=== PATIENT | male | born 1940 | race Caucasian/White ===

== ENCOUNTER 2021-12-21 14:03 | Emergency (ER) | payer MEDICARE, OTHER ==
[~2021-12-21 14:03] MED LIST: AUGMENTIN 875-1 EACH PO; CARAFATE1 GM PO; COLESTID1 GM PO; DOXYCYCLINE HY100 MG PO; IMDUR 30MG TABL30 MG PO; LEVOTHYROXINE175 MCG PO; LIPITOR20 MG PO; MECLIZINE25 MG PO; MOBIC7.5 MG PO; NEURONTIN600 MG PO; NORCO 5-325 TA1 EACH PO; OXYCODONE HCL5 MG PO; PAXIL20 MG PO; PRILOSEC20 MG PO; TOPROL XL25 MG PO; TYLENOL500 MG PO; ZANTAC150 MG PO; ZOFRAN4 MG PO
== END 2021-12-21 17:36 | disposition home or self-care (01) ==
LOC: FER 14:03
DX: M25.531 Pain in right wrist (principal); I10 Essential (primary) hypertension; X58.XXXA Exposure to other specified factors, initial encounter; Y92.89 Other specified places as the place of occurrence of the external cause; Y99.0 Civilian activity done for income or pay
CPT/HCPCS: 93971